=== PATIENT | female | born 1960 ===

== ENCOUNTER 2020-05-17 12:43 | Emergency (ER) | payer MEDICAID ==
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
[2020-05-17] MEDS ORDERED: NITROGLYCERIN 0.4 MG TAB SUBL SL PRN (13:30)
[2020-05-17] MEDS ORDERED: FAMOTIDINE 20 MG/2 ML INJ IV ONE (13:30)
[2020-05-17] MEDS ORDERED: NITROGLYCERIN 0.4 MG TAB SUBL SL ONE (13:30)
--- NOTE | 2020-05-17 13:40 | XRay Report ---
CHEST 1 VIEW INDICATION / CLINICAL INFORMATION: Chest Pain. COMPARISON: None available. FINDINGS: SUPPORT DEVICES: None. HEART / MEDIASTINUM: No significant abnormality. LUNGS / PLEURA: No significant pulmonary or pleural abnormality. No pneumothorax. ADDITIONAL FINDINGS: No significant additional findings. IMPRESSION: No acute pulmonary or pleural abnormality Signer Name: Carter Robbins MD FACR Signed: 05/17/2020 1:36 PM Workstation Name: [id number]
[2020-05-17 13:41] LABS: Basophils % (Auto) 0.6 % (0.0-1.8); Eosinophils # (Auto) 0.1 K/mm3 (0.0-0.4); Eosinophils % (Auto) 1.5 % (0.0-4.3); Hematocrit 40.2 % (30.3-42.9); Lymphocytes % (Auto) 37.7 % (13.4-35.0); Mean Corpuscular HGB Conc 35 % (30-34); Mean Corpuscular Volume 86 fl (79-97); Monocytes # (Auto) 0.5 K/mm3 (0.0-0.8); Monocytes % (Auto) 6.2 % (0.0-7.3); Platelet Count 212 K/mm3 (140-440); Red Blood Count 4.65 M/mm3 (3.65-5.03); Red Cell Distribution Width 13.6 % (13.2-15.2)
[2020-05-17 13:50] LABS: INR 0.98 (0.87-1.13)
[2020-05-17 13:51] LABS: Partial Thromboplastin Time 23.9 Sec. (24.2-36.6)
[2020-05-17 14:05] LABS: Alanine Aminotransferase 13 units/L (7-56); Albumin 3.8 g/dL (3.9-5); BUN/Creatinine Ratio 16; Blood Urea Nitrogen 13 mg/dL (7-17); Calcium 9.2 mg/dL (8.4-10.2); Hemolysis Index 8
[2020-05-17 16:18] VITALS: BP 133/62
== END 2020-05-17 16:42 | disposition left against medical advice (07) ==
LOC: ED 12:43
DX: R07.89 Other chest pain (principal); R11.2 Nausea with vomiting, unspecified; I10 Essential (primary) hypertension; E11.9 Type 2 diabetes mellitus without complications; I25.2 Old myocardial infarction; F17.200 Nicotine dependence, unspecified, uncomplicated; Z90.710 Acquired absence of both cervix and uterus; Z90.49 Acquired absence of other specified parts of digestive tract
CPT/HCPCS: 36415; 71045; 80053; 84484; 85025; 85610; 85730; 93005